=== PATIENT | female | born 1935 | race Caucasian/White ===

== ENCOUNTER 2024-03-30 17:01 | Emergency (ER) | payer OTHER, SELFPAY ==
[2024-03-30 17:08] VITALS: BP 172/98
--- NOTE | 2024-03-30 18:03 | ED.GENMED ---
History of Present Illness
General
Chief Complaint: Chest Pain
Source: patient and significant other
Exam Limitations: none
Time Seen by Provider: 03/30/24 17:51
History of Present Illness
History of Present Illness:
This is a 88 year old female that comes in with c/o chest pain. Significant other states that this has been going on for a month. States that this comes and goes. States that she just saw the Parts Identification Technician last week. States that she had occasional
diarrhea. Denies any fever, chills, SOB, abd pain, nausea vomiting, headache, dizziness, urinary burning.
Past History
Past History
ED Past Medical History: GERD, HTN, Hypercholesterolemia, Hypothyroidism and Other (PVD, Chronic diarrhea on Imodium daily, CKD, IBS, Essential tremors, Bronchitis, )
ED Past Surgical History: Bowel resection (Perforated bowel after Colonscopy) and Gynecological
Social History
Tobacco: Non-smoker
Alcohol: Occasional
Drug: None
Personal:
Living: assisted living
Review of Systems
Review of Systems
All Other Systems: ROS reviewed and negative except as documented in HPI and ROS
Constitutional: Reports no symptoms; Denies fever or chills
EENT: Reports no symptoms
Respiratory: Reports no symptoms; Denies cough or trouble breathing
Cardiac: Reports chest pain
ABD/GI: Reports diarrhea; Denies abdominal pain, nausea or vomiting
: Reports no symptoms
Musculoskeletal: Reports no symptoms
Neurological: Reports no symptoms; Denies dizzy or headache
Psychiatric: Reports no symptoms
Phy Exam
General Physical Exam
General Presentation: no apparent distress
General age: appears stated age
General Skin: warm and dry
General Habitus: elderly
General Mental: alert
General Hydration: appears well hydrated
ENT Exam
ENT Exam: TM's normal, pharynx normal and neck supple
Eye Exam
Eye Exam: EOMI
Cardiovascular Exam
Cardiovascular Exam: regular rate/rhythm, no edema, no murmur and normal peripheral pulses
Pulmonary Exam
Pulmonary Exam: lungs clear, no respiratory distress, no rales, chest non tender, no crackles, no rhonchi, no wheezing and no cough
Gastrointestinal Exam
Gastrointestinal Exam: normal bowel sounds, soft, no organomegaly, no pulsatile mass, non distended and tender (Generalized abd tenderness with palpation. )
Musculoskeletal Exam
Musculoskeletal Exam: full ROM and no edema
Skin Exam
Skin Exam: normal color, warm/dry, no rash and no petechia
Psychiatric Exam
Psychiatric Exam: normal mood/affect
Scores
Heart Score for Chest Pain Patients
STEMI patient?: No
History: Slightly or Non-Suspicious
ECG: Normal
Age: >/= 65 years
Risk Factors: 1 or 2 Risk Factors
Troponin: </= Normal Limit
Heart Score for Chest Pain Patients: 3
Heart Score Risk: 2.5% MACE over next 6 weeks
Course
Orders/Labs/Results
Orders:
Orders
03/30/24 17:02
Electrocardiogram (*1) Urgent
Reason for Study: Chest Pain
EKG- Treatment ONCE
03/30/24 18:02
CT Abd/pel W Iv And Oral Contr Urgent
Comment:
Reason For Exam: Generazed abd tenderness
Iohexol [Omnipaque] See Protocol PO NOW STA
03/30/24 18:03
CR Chest - 2 Views Urgent
Comment:
Reason For Exam: left sided pain under breast
03/30/24 18:26
Complete Blood Count/With Diff Urgent
Comprehensive Metabolic Panel Urgent
Troponin I Urgent
03/30/24 18:54
EKG [Electrocardiogram (*1)] Urgent
Reason for Study: Chest Pain
03/30/24 18:55
EKG- Treatment ONCE
03/30/24 19:36
Urinalysis Reflex To Culture Urgent
Date Specimen was Collected: 03/30/24
Time Specimen was Collected: 19:35
Urine Microscopic Reflex Cult Urgent
03/30/24 21:18
Troponin I Urgent
Abnormal Lab Results
03/30/24 03/30/24
18:26 19:36
RBC 4.06 L 10^6/uL
(4.20-5.40)
MCH 32.8 H pg
(27.0-31.0)
MPV 11.4 H fL
(7.4-10.4)
Absolute Lymphs (auto) 1.1 L 10^3/uL
(1.2-3.4)
Neutrophils % 78.1 H %
(42.2-75.2)
Lymphocytes % 13.4 L %
(20.5-51.1)
Potassium 5.4 H mmol/L
(3.5-5.1)
BUN 31 H mg/dl
(7-17)
Creatinine 1.2 H mg/dL
(0.6-1.0)
Glucose 100 H mg/dl
(70-99)
AST 46 H U/L
(14-36)
Urine Ketones Trace A
(Negative)
Leukocyte Esterase Rfl Trace A
(Negative)
Urine Bacteria (Reflex) Few A
(Negative)
03/30/24 18:26
03/30/24 18:26
Dehydration. Potassium slightly elevated. Glucose nonfasting. AST mildly elevated. Urine negative for infection. Both Troponin <0.012
Vital Signs
Initial and Last Documented VS:
Initial Vital Signs
Temp Pulse Resp BP Pulse Ox
97.8 F 73 20 172/98 96
03/30/24 17:08 03/30/24 17:08 03/30/24 17:08 03/30/24 17:08 03/30/24 17:08
Last Documented Vital Signs
Temp Pulse Resp BP Pulse Ox
97.8 F 73 20 172/98 96
03/30/24 17:08 03/30/24 17:08 03/30/24 17:08 03/30/24 17:08 03/30/24 17:08
MDM/Problems Addressed
Differential Diagnosis Includes:
IBS, Diverticulitis Coronary syndrome
MDM/Problems Addressed:
This is a 88 year old female that comes in with c/o pain under the left breast. Significant other with patient states that this has been going on for a month and that it comes and goes. Patient just saw the Parts Identification Technician last week.
Will get labs, CT scan and urine
Back into see patient. Explained that her both Troponin are normal and her CT of the abd is normal. Will have patient follow up with Dr. Weems and the family doctor for recheck. Patient to use Tylenol for discomfort. Return with any concerns.
Chronic conditions affecting care:
IBS
Acute Exacerbation and/or Progression of Chronic Illness:
IBS
*Radiology
Radiology exam reviewed: preliminary read by ED provider (Chest- Negative for active disease) and radiology read reviewed (Chest-No acute disease of the chest CT abd/pelvis-Normal no acute pathology of the abdomen or pelvis identified. Mild
diverticulosis. Stable. A no evidence of acute Diverticulitis. )
*Pulse Oximetry
Patient hypoxic: no
*EKG
Interpreted by ED Provider?: Yes
Heart Rate: 78
Rate: normal
Rhythm: sinus
[place]: normal axis
Interval: normal interval
QRS Pattern: normal QRS
Ischemia: non-specific ST changes (V3, V4, V5, V6, )
*Critical Care Note
Total Time (30-74mins, 75-104mins- exclusive of procedures): Not Applicable
ED Attending Note
-
Portions of this chart may have been created with voice recognition software.� Occasional wrong word or��sound alike� substitutions may have occurred due to the inherent limitations of voice recognition software.
Discharge Plan
Departure
Patient Disposition: Home (Routine Discharge)
Date of Disposition: 03/30/24
Time of Disposition: 22:56
Patient with high blood pressure during this ER visit?: Yes
Condition: Good
Covid-19: Not Applicable
Discharge Problem:
Acute dehydration, Upper abdominal pain, Chest pain
Instructions: Abdominal pain in adults - Discharge instructions, Chest Pain DCA Follow Up, BLOOD PRESSURE
Prescriptions:
No Action
lisinopril 20 MG tablet
20 mg PO BID
simvastatin 20 mg Tablet
20 mg PO HS
aspirin 81 mg Tablet,Delayed Release (Dr/Ec)
81 mg PO DAILY
hydralazine 10 mg Tablet
20 mg PO BID
atenolol 25 mg Tablet
25 mg PO DAILY
mirtazapine 7.5 mg Tablet
7.5 mg PO HS
Referrals:
NONE,* [Family Provider] -
Activity Restrictions/Additional Instructions:
As discussed, your blood work shows that you are dehydrated. Please increase your water intake to 8-8oz glasses daily. Your Both Troponin are normal. However, you have been place on the Cardiology hot line and the Parts Identification Technician office will call you
the next business day for further evaluation. Your CT of the abd is also normal. Please follow up with the family doctor for recheck. IF YOU HAVE INCREASED OR CHANGING PAIN, OR YOU HAVE ANY OTHER CONCERNS PLEASE RETURN TO THE EMERGENCY ROOM.
Interventions
Interventions:
*Risk Screen - Suicide Last Done: 03/30/24 17:08
*General Assessment Last Done: 03/30/24 17:08
*Neglect/Abuse Screening Last Done: 03/30/24 17:08
ED- Fall Risk Assessment Last Done: 03/30/24 18:38
ED- Cardiac Assessment Last Done: 03/30/24 18:38
Discharge Date and Time
Print Language: ARABIC
[2024-03-30] MEDS: OMNIPAQUE 50 ML PO (18:24)
[2024-03-30 18:33] LABS: % Basophils 0.4 % (0-2); % Eosinophils 2.4 % (0-6); % Immature Granulocytes 0.2 % (0-0.5); % Lymphocytes 13.4 % (20.5-51.1); % Monocytes 5.5 % (1.7-9.3); % Neutrophils 78.1 % (42.2-75.2); Absolute Eosinophils 0.2 10^3/uL (0-0.7); Absolute Lymphocytes 1.1 10^3/uL (1.2-3.4); Absolute Monocytes 0.5 10^3/uL (0.1-0.6); Absolute Neutrophils 6.5 10^3/uL (1.4-6.5); Hematocrit 38.6 % (37.0-47.0); Hemoglobin 13.3 g/dL (12.0-16.0); Mean Corp Hgb Conc. 34.5 g/dL (33.0-37.0); Mean Corpuscular Hgb 32.8 pg (27.0-31.0); Mean Corpuscular Volume 95.1 fL (81.0-99.0); Mean Platelet Volume 11.4 fL (7.4-10.4); Nucleated Red Blood Cells % 0 %; Platelet Count 171 10^3/uL (130-400); Red Blood Cell Count 4.06 10^6/uL (4.20-5.40); Red Cell Dist. Width 12.4 % (11.5-14.5); White Blood Cell Count 8.4 10^3/uL (4.8-10.8)
[2024-03-30 18:45] LABS: ALT (SGPT) 31 U/L (0-35); AST (SGOT) 46 U/L (14-36); Albumin 4.3 g/dl (3.5-5.0); Alkaline Phosphatase 74 U/L (38-126); Blood Urea Nitrogen 31 mg/dl (7-17); Calcium 9.2 mg/dl (8.4-10.2); Carbon Dioxide 23 mmol/L (22-30); Chloride 107 mmol/L (98-107); Glucose 100 mg/dl (70-99); Potassium 5.4 mmol/L (3.5-5.1); Sodium 138 mmol/L (135-145); Total Bilirubin 0.5 mg/dl (0.2-1.3); Total Protein 6.8 g/dl (6.3-8.2); eGFR 43.54
[2024-03-30 18:55] LABS: Troponin I < 0.012 ng/ml
[2024-03-30 19:00] VITALS: BP 189/74
[2024-03-30 19:23] VITALS: BP 173/98
[2024-03-30 19:46] LABS: Urine Albumin Negative (Neg - Trace); Urine Bilirubin Negative (Negative); Urine Character Clear (Clear); Urine Color Amber; Urine Glucose Negative (Negative); Urine Ketone Trace (Negative); Urine Leukocyte Trace (Negative); Urine Nitrite Negative (Negative); Urine Occult Blood Negative (Negative); Urine Specific Gravity 1.005 (<1.030); Urine Urobilinogen Negative (Neg - 1+)
[2024-03-30 20:00] LABS: Urine Bacteria Few (Negative); Urine Red Blood Cell 0-2 /HPF (0-2)
[2024-03-30 20:01] LABS: Urine Urothelial Cell 0-2 /LPF (FEW)
[2024-03-30 20:20] VITALS: BP 175/71
[2024-03-30 21:00] VITALS: BP 165/68
[2024-03-30 21:48] LABS: Troponin I < 0.012 ng/ml
[2024-03-30] MEDS: TYLENOL 1000 MG PO (23:15)
== END 2024-03-31 00:05 | disposition home or self-care (01) ==
LOC: EMR 17:01
PROVIDERS: Clinical Nurse Specialist Family Health; EMERGENCY PHYSICIAN Emergency Medicine
DX: E86.0 Dehydration (principal); R07.9 Chest pain, unspecified; R10.10 Upper abdominal pain, unspecified; R19.7 Diarrhea, unspecified; I12.9 Hypertensive chronic kidney disease with stage 1 through stage 4 chronic kidney disease, or unspecified chronic kidney disease; N18.9 Chronic kidney disease, unspecified; E78.00 Pure hypercholesterolemia, unspecified; E03.9 Hypothyroidism, unspecified; I73.9 Peripheral vascular disease, unspecified; K21.9 Gastro-esophageal reflux disease without esophagitis; K58.9 Irritable bowel syndrome, unspecified; G25.0 Essential tremor; Z98.0 Intestinal bypass and anastomosis status; Z88.8 Allergy status to other drugs, medicaments and biological substances
CPT/HCPCS: 99285; 71046; 74177; 80053; 81003; 81015; 84484; 85025; 93005; Q9967

== ENCOUNTER → 2024-04-29 13:43 | Outpatient (REF) | payer OTHER, SELFPAY | LOC: HWRCS 13:43 | PROVIDERS: ATTENDING PHYSICIAN Nuclear Medicine Nuclear Cardiology | DX: I10 Essential (primary) hypertension (principal); E78.5 Hyperlipidemia, unspecified | CPT/HCPCS: 93306 ==

== ENCOUNTER 2024-09-19 09:31 | Emergency (ER) | payer OTHER, SELFPAY ==
[2024-09-19] VITALS (10 sets, daily range): BP systolic 141–200; BP diastolic 59–96; BMI 22.8
--- NOTE | 2024-09-19 10:14 | EDRN ---
Tyrel GRIGSBY currently at the pts bedside
--- NOTE | 2024-09-19 10:16 | ED.GENMED ---
History of Present Illness
General
Chief Complaint: Fall
Source: patient
Exam Limitations: none
Time Seen by Provider: 09/19/24 10:08
Nursing documentation reviewed up to this point in time: agreed with
History of Present Illness
History of Present Illness:
88-year-old female past medical history of dementia CKD hypothyroidism presenting to the emergency department today after a fall where she claims she was going to the bathroom a few hours ago slipped fell to the ground unable to stand up eventually
found by staff #1 called to bring to the ER. She claims that her left ribs hurt denying hip pain leg pain or extremity discomfort. She does not believe she hit her head. She does not remember the event very well. She believes she was on the
ground for 1 hour but but was not entirely sure. Denies numbness or weakness no chest pain shortness of breath.
Past History
Past History
ED Past Medical History: GERD, HTN, Hypercholesterolemia, Hypothyroidism and Other (PVD, Chronic diarrhea on Imodium daily, CKD, IBS, Essential tremors, Bronchitis, )
ED Past Surgical History: Bowel resection (Perforated bowel after Colonscopy) and Gynecological
Social History
Tobacco: Non-smoker
Alcohol: Occasional
Drug: None
Personal:
Living: assisted living
Review of Systems
Review of Systems
Allergies reviewed?: Yes
All Other Systems: ROS reviewed and negative except as documented in HPI and ROS
Phy Exam
Physical Exam
Physical Exam:
GENERAL: Alert , in no apparent distress
EYE: pupils equal and reactive
NECK: Supple, no significant adenopathy.
ENT: o/p clr, mmm.
CARDIAC: Discomfort to the left lateral chest wall no abdominal pain no anterior chest wall pain no overlying skin changes regular rate and rhythm .
LUNGS: Clear breath sounds bilaterally, no acute respiratory distress, no wheezes/rales/rhonchi
ABDOMEN: Soft, without focal tenderness, no r/g, no cvat
NEUROLOGICAL: Alert and oriented, no focal neuro deficits
SKIN: Warm and dry, skin intact.
MUSCULOSKELETAL: No edema, well perfused.
PSYCH: Normal and appropriate interaction.
Course
Orders/Labs/Results
Orders:
Orders
09/19/24 10:15
CT Head W/o Iv Contrast Urgent
Comment:
Reason For Exam: fall unknonw head strike, dementia
Acetaminophen [Tylenol] 1,000 mg PO NOW STA
CR Ribs-left 3 Vw W/pa Chest Urgent
Comment:
Reason For Exam: left rib pain after fall
09/19/24 10:25
CBC/With Diff [Complete Blood Count/With Diff] Urgent
CMP [Comprehensive Metabolic Panel] Urgent
Creatine Phosphokinase Urgent
Abnormal Lab Results
09/19/24
10:25
WBC 13.8 H 10^3/uL
(4.8-10.8)
RBC 4.07 L 10^6/uL
(4.20-5.40)
MCH 32.4 H pg
(27.0-31.0)
MPV 11.2 H fL
(7.4-10.4)
Absolute Neuts (auto) 11.9 H 10^3/uL
(1.4-6.5)
Absolute Lymphs (auto) 1.0 L 10^3/uL
(1.2-3.4)
Absolute Monos (auto) 0.8 H 10^3/uL
(0.1-0.6)
Neutrophils % 86.4 H %
(42.2-75.2)
Lymphocytes % 6.9 L %
(20.5-51.1)
BUN 25 H mg/dl
(7-17)
Glucose 106 H mg/dl
(70-99)
09/19/24 10:25
09/19/24 10:25
Vital Signs
Initial and Last Documented VS:
Initial Vital Signs
Temp Pulse Resp BP Pulse Ox
98.3 F 109 20 164/96 96
09/19/24 09:39 09/19/24 09:39 09/19/24 09:39 09/19/24 09:39 09/19/24 09:39
Last Documented Vital Signs
Temp Pulse Resp BP Pulse Ox
98.5 F 96 20 146/59 95
09/19/24 10:13 09/19/24 10:59 09/19/24 10:59 09/19/24 10:59 09/19/24 10:59
MDM/Problems Addressed
MDM/Problems Addressed:
88-year-old female presenting to the emergency department today with concerns of left lateral rib after a fall. She describes slipping on the way to the bathroom a few hours ago. She believes she was on the ground for 1 hour but is not entirely
sure and does have a history of dementia. Concerning this head CT as well as rib series ordered for further assessment. Additionally CK and labs. Labs slight white count but otherwise unremarkable CK not elevated rib series without evidence of
fracture or significant acute lung process. No symptoms consistent with pneumonia likely bibasilar atelectasis rather than pneumonia. Head CT without emergent findings. Patient stable for discharge was given incentive spirometer advised to take
ongoing Tylenol return precautions given.
*Critical Care Note
Total Time (30-74mins, 75-104mins- exclusive of procedures): Not Applicable
ED Attending Note
-
Portions of this chart may have been created with voice recognition software.� Occasional wrong word or��sound alike� substitutions may have occurred due to the inherent limitations of voice recognition software.
Discharge Plan
Departure
Patient Disposition: Home (Routine Discharge)
Date of Disposition: 09/19/24
Time of Disposition: 12:27
Patient with high blood pressure during this ER visit?: No
Condition: Good
Covid-19: Not Applicable
Discharge Problem:
Contusion of rib
Instructions: Preventing falls in adults
Prescriptions:
No Action
lisinopril 20 MG tablet
20 mg PO BID
simvastatin 20 mg Tablet
20 mg PO HS
aspirin 81 mg Tablet,Delayed Release (Dr/Ec)
81 mg PO DAILY
hydralazine 10 mg Tablet
20 mg PO BID
atenolol 25 mg Tablet
25 mg PO DAILY
mirtazapine 7.5 mg Tablet
7.5 mg PO HS
Referrals:
NONE,* [Family Provider] -
Activity Restrictions/Additional Instructions:
You came to the emergency department today after a fall. Here you had reassuring assessment. Please use the incentive spirometer and Tylenol to help with symptoms. Return to the emergency department for any worsening, new or concerning symptoms.
Interventions
Interventions:
*Risk Screen - Suicide Last Done: 09/19/24 10:13
*General Assessment Last Done: 09/19/24 10:13
*Neglect/Abuse Screening Last Done: 09/19/24 10:13
ED- Fall Risk Assessment Last Done: 09/19/24 10:13
*ED COVID-19 Vaccine History Last Done: 09/19/24 09:39
ED-Musculoskeletal Assessment Last Done: 09/19/24 10:13
ED- Neurological Assessment Last Done: 09/19/24 10:13
ED-Skin Assessment Last Done: 09/19/24 10:13
Discharge Date and Time
Print Language: TUNISIAN
[2024-09-19] MEDS: TYLENOL 1000 MG PO (10:23)
[2024-09-19 10:34] LABS: % Basophils 0.2 % (0-2); % Eosinophils 0.1 % (0-6); % Immature Granulocytes 0.3 % (0-0.5); % Lymphocytes 6.9 % (20.5-51.1); % Monocytes 6.1 % (1.7-9.3); % Neutrophils 86.4 % (42.2-75.2); Absolute Monocytes 0.8 10^3/uL (0.1-0.6); Absolute Neutrophils 11.9 10^3/uL (1.4-6.5); Hematocrit 38.9 % (37.0-47.0); Hemoglobin 13.2 g/dL (12.0-16.0); Mean Corp Hgb Conc. 33.9 g/dL (33.0-37.0); Mean Corpuscular Hgb 32.4 pg (27.0-31.0); Mean Corpuscular Volume 95.6 fL (81.0-99.0); Mean Platelet Volume 11.2 fL (7.4-10.4); Nucleated Red Blood Cells % 0 %; Platelet Count 159 10^3/uL (130-400); Red Blood Cell Count 4.07 10^6/uL (4.20-5.40); Red Cell Dist. Width 12.8 % (11.5-14.5); White Blood Cell Count 13.8 10^3/uL (4.8-10.8)
[2024-09-19 10:45] LABS: ALT (SGPT) 29 U/L (0-35); AST (SGOT) 36 U/L (14-36); Albumin 4.3 g/dl (3.5-5.0); Alkaline Phosphatase 90 U/L (38-126); Blood Urea Nitrogen 25 mg/dl (7-17); Calcium 9.3 mg/dl (8.4-10.2); Carbon Dioxide 22 mmol/L (22-30); Chloride 99 mmol/L (98-107); Creatine Phosphokinase 123 U/L (30-135); Estimated Creatinine Clearance 39 ml/min; Glucose 106 mg/dl (70-99); Potassium 4.2 mmol/L (3.5-5.1); Sodium 135 mmol/L (135-145); Total Bilirubin 1.3 mg/dl (0.2-1.3); Total Protein 7.2 g/dl (6.3-8.2); eGFR 54.19
--- NOTE | 2024-09-19 12:50 | EDRN ---
this RN called the patients daughter who will be coming to pick the pt up
== END 2024-09-19 13:44 | disposition home or self-care (01) ==
LOC: EMR 09:31
PROVIDERS: Physician Assistant; EMERGENCY PHYSICIAN Emergency Medicine
DX: S20.219A Contusion of unspecified front wall of thorax, initial encounter (principal); W01.0XXA Fall on same level from slipping, tripping and stumbling without subsequent striking against object, initial encounter; F03.90 Unspecified dementia, unspecified severity, without behavioral disturbance, psychotic disturbance, mood disturbance, and anxiety; I12.9 Hypertensive chronic kidney disease with stage 1 through stage 4 chronic kidney disease, or unspecified chronic kidney disease; N18.9 Chronic kidney disease, unspecified; E03.9 Hypothyroidism, unspecified; E78.00 Pure hypercholesterolemia, unspecified; G25.0 Essential tremor; K21.9 Gastro-esophageal reflux disease without esophagitis; K58.9 Irritable bowel syndrome, unspecified
CPT/HCPCS: 99284; 70450; 71101; 80053; 82550; 85025